=== PATIENT | female | born 1985 | race Caucasian/White ===

== ENCOUNTER 2017-02-06 08:42 | Emergency (ER) | payer OTHER ==
[2017-02-06 08:52] VITALS: BP 130/85
--- NOTE | 2017-02-06 08:58 | ED Physician Documentation ---
History of Present Illness - Stated complaint Stated Complaint: EAR PX - Chief complaint Chief Complaint: Heent - Additonal information Additional information: hx from pt healthy 31 f not recent diving trip in [place] ear pain tried ITC swimmer ear drops but pain persist sore throat too now no fever Review of Systems Constitutional: denies: Fever Ears: reports: Ear pain Throat: reports: Sore throat Respiratory: denies: Cough : denies: Now EGA Immunocompromised: denies: Immunocompromised PD PAST MEDICAL HISTORY - Past Medical History Past Medical History: No - Past Surgical History Past Surgical History: No - Present Medications Home Medications: Ambulatory Orders Medication Instructions Recorded Confirmed Azithromycin [Zithromax] 250 mg PO DAILY #6 tablet 02/06/17 Oxymetazoline HCl [Afrin] 2 spray NS BID PRN #1 bottle 02/06/17 - Allergies Allergies/Adverse Reactions: Allergies Allergy/AdvReac Type Severity Reaction Status Date / Time Penicillins Allergy Unknown Verified 02/06/17 08:52 - Social History Does the pt smoke?: No Smoking Status: Never smoker Does the pt drink ETOH?: No Does the pt have substance abuse?: No - Immunizations Immunizations are current?: Yes - POLST Patient has POLST: No PD ED PE NORMAL - Vitals Vital signs reviewed: Yes - General General: Alert and oriented X 3 - HEENT HEENT: PERRL, Pharynx benign (erythema s exudate, no trismus). No: Ears normal (L canal slightly swollen, no dc, miold TTP, TM dull with cloudy fluid and no vsible landmarks, T TM dull but no fluid behinf) - Cardiac Cardiac: RRR - Respiratory Respiratory: No respiratory distress, Clear bilaterally Results - Vitals Vitals: Vital Signs - 24 hr 02/06/17 08:47 Temperature 36.3 C L Heart Rate 99 Respiratory 15 Rate Blood Pressure 130/85 H O2 Saturation 99 Oxygen O2 Source Room air Departure - Departure Disposition: 01 Home, Self Care Clinical Impression: Otitis media Qualifiers: Otitis media type: suppurative Chronicity: acute Laterality: left Recurrence: not specified as recurrent Spontaneous tympanic membrane rupture: without spontaneous rupture Qualified Code(s): H66.002 - Acute suppurative otitis media without spontaneous rupture of ear drum, left ear Condition: Good Instructions: ED Otitis Media Acute Adult Prescriptions: Azithromycin [Zithromax] 250 mg PO DAILY #6 tablet Oxymetazoline HCl [Afrin] 2 spray NS BID PRN #1 bottle PRN Reason: nasal sinus ear congestion Comments: Take all the antibiotics as prescribed Use the afrin twice a day for 3 days to help open the Eustachian tube and decompress the middle ear Motrin/ibuprofen for the pain
== END 2017-02-06 09:04 | disposition home or self-care (01) ==
LOC: ED 08:42
DX: H66.002 Acute suppurative otitis media without spontaneous rupture of ear drum, left ear (principal)
CPT/HCPCS: 99283